=== PATIENT | male | born 1945 | race Caucasian/White ===

== ENCOUNTER → 2017-03-05 | Outpatient (CLI) | payer OTHER, MEDICARE ==
[~2017-03-05] MED LIST: ASCO100061 PO; ASPI325T39 PO; CIPR-255 PO; DOXY100C76 PO; HYDR5SYP11 PO; PRED20TA2 PO
== END | disposition home or self-care (01) ==
LOC: C.LAB 14:07
PROVIDERS: ATTEND Urology
DX: N40.1 Benign prostatic hyperplasia with lower urinary tract symptoms (principal)

== ENCOUNTER 2017-03-17 09:21 | Emergency (ER) | payer OTHER, MEDICARE ==
[~2017-03-17] VITALS: Ht 182.9 cm; Wt 104.2 kg
[~2017-03-17 09:21] MED LIST changes: -ASCO100061 PO; -DOXY100C76 PO; -HYDR5SYP11 PO; -PRED20TA2 PO
[2017-03-17 09:25] VITALS: BP 169/94; TEMP 37.2; Ht 182.9 cm; Wt 104.2 kg
[2017-03-17] MEDS ORDERED: ALBUT/IPRATROP 3MG/0.5MG NEB 3 ML VIAL INH STA (09:37)
[2017-03-17] MEDS ORDERED: HYDROCODONE/HOMATROPINE SYRUP 5MG/1.5MG 5ML UDP PO STA (09:37)
[2017-03-17] MEDS ORDERED: ALBUTEROL HFA 8 GM INHALER INH STA (09:37)
--- NOTE | 2017-03-17 09:40 | EMERGENCY ROOM VISIT NOTE ---
History Report prepared by Rodrickibmarichuy: Lamar Cast Under the Supervision of: Dr. Alex Lindsay M.D. First contact with patient: 09:27 Chief Complaint: CONGESTION Stated Complaint: SEVERE BRONCHIAL AND NASAL CONGESTION History of Present Illness The patient is a 71 year old male who presents to the Emergency Room with complaints of constant congestion beginning 2 days ago. The patient states that he has had a productive cough and has been having difficulty sleeping due to his cough. He reports that he has a history of 9 broken ribs and a punctured lung after he fell off of a ladder a few years ago. He notes that he has some chest pain with coughing and it is sore when he takes a deep breath. He complains of some rattling in his chest. The patient denies any sore throat, trouble swallowing, headache, and secretions. He states that he called his PCP today and was told to come in to the ED to be seen. He reports that he does not use any inhaler at home and has not taken anything for his pain. Source of History: patient Onset: 2 days ago Position: other (global) Quality: other (congestion) Timing: constant Modifying Factors (Worsening): breathing Associated Symptoms: + cough, + chest pain, No headache, No sorethroat Note: The patient denies any trouble swallowing and secretions. Review of Systems See HPI for pertinent positives & negatives. A total of 10 systems reviewed and were otherwise negative. Past Medical & Surgical Medical Problems: (1) Hives (2) HTN (hypertension) Family History Hypertension Social History Smoking Status: Never Smoker Alcohol Use: occasionally Marital Status: Housing Status: lives with family Occupation Status: employed Current/Historical Medications Scheduled Ascorbic Acid (Ascorbic Acid), 1 TAB PO DAILY Aspirin (Aspirin Ec), 325 MG PO Q2D Doxycycline Monohydrate (Monodox), 100 MG PO BID Scheduled PRN Hydrocodone W/ Homatropine (Hycodan 5/1.5MG 5 Ml), 5 ML PO HS PRN for Cough Allergies Coded Allergies: No Known Allergies (Unverified , 03/17/17) Physical Exam Vital Signs Date Time Temp Pulse Resp B/P (MAP) Pulse Ox O2 Delivery O2 Flow Rate FiO2 03/17/17 10:40 78 18 95 03/17/17 09:31 97 Room Air 03/17/17 09:25 37.2 86 18 169/94 96 Room Air Physical Exam GENERAL: Patient is a healthy-appearing well-nourished male HEAD: Normocephalic atraumatic EYES: Ocular movements intact pupils equal and react to light OROPHARYNX mucous membranes are moist no exudates present no erythema or edema present NECK: Supple no nuchal rigidity CHEST: Good equal expansion LUNGS: Bilateral wheezing present at the bases. CARDIAC: Normal S1 and S2 ABDOMEN: Soft nontender no guarding BACK: No CVA tenderness EXTREMITIES: No pain upon palpation normal muscle strength in all groups no clubbing cyanosis or edema NEURO: Patient is following commands and answering questions appropriately. Alert and oriented x3 Cranial Nerves 2-12 grossly intact Medical Decision & Procedures ER Provider Diagnostic Interpretation: X-ray results as stated below per interpretation by me and the radiologist: CHEST ONE VIEW PORTABLE FINDINGS: The heart is mildly enlarged. There is aortic tortuosity/ectasia. There is no failure. There is no focal pulmonary consolidation. There are no pleural effusions. There are old left-sided rib fractures.[ IMPRESSION: No active disease in the chest. Electronically signed by: Kunal Andrew M.D. 03/17/2017 9:57 AM Dictated Date/Time: 03/17/2017 9:57 AM Medications Administered Medications (Trade) Dose Ordered Sig/Corrine Route Start Time Stop Time Status Last Admin Dose Admin Hydrocodone Bit/ Homatropine Methylb (Hycodan Syrup) 5 ml NOW STAT PO 03/17/17 09:37 03/17/17 09:39 DC 03/17/17 09:56 5 ML Albuterol (Ventolin Hfa Inhaler) 2 puffs NOW STAT INH 03/17/17 09:37 03/17/17 09:39 DC 03/17/17 09:57 2 PUFFS Albuterol/ Ipratropium (Duoneb) 3 ml NOW STAT INH 03/17/17 09:37 03/17/17 09:40 DC 03/17/17 09:56 3 ML Doxycycline Hyclate (Vibramycin Cap) 100 mg ONE ONCE PO 03/17/17 10:15 03/17/17 10:16 DC 03/17/17 10:39 100 MG ED Course 0927: Past medical records reviewed. The patient was evaluated in room A11. A complete history and physical examination was performed. 0937: Duoneb 3ml INH, Albuterol 2 puffs INH, Hycodan Syrup 5ml PO. 1013: Prednisone 60mg PO. 1015: Vibramycin Cap 100mg PO. 1018: I updated and reevaluated the patient. The patient refused the prednisone after my strong recommendation. 1023: Upon reexamination the patient is doing well. I discussed results and treatment plan with the patient. He verbalizes agreement and understanding. The patient is ready for discharge. Medical Decision Differential diagnosis: Etiologies such as infections, reactive airway disease, pneumonia, pneumothorax , COPD, CHF, cardiac ischemia, pulmonary embolism, musculoskeletal, gastrointestinal, as well as others were entertained. This is a 71-year-old male who presents emergency department complaining of bronchitis-like symptoms as well as cough. The patient is requesting an antibiotic. I recommended we obtain a chest x-ray as well as breathing treatments and an inhaler. The patient does not have any evidence of pneumonia congestion on his chest x-ray. I also recommended prednisone which the patient is adamantly refusing. He also did receive Hycodan. Repeat examination revealed improvement patient's symptoms. I recommended that the patient continue prednisone as well as albuterol inhaler twice every 6 hours as needed. The patient does not want to take prednisone so continue him on doxycycline Medication Reconcilliation Current Medication List: was personally reviewed by me Blood Pressure Screening Patient's blood pressure: Elevated blood pressure Blood pressure disposition: Referred to PCP Impression Primary Impression: Bronchitis Scribe Attestation The scribe's documentation has been prepared under my direction and personally reviewed by me in its entirety. I confirm that the note above accurately reflects all work, treatment, procedures, and medical decision making performed by me. Departure Information Dispostion Home / Self-Care Prescriptions Hydrocodone W/ Homatropine (HYCODAN 5/1.5MG 5 ML) 1 Syp Syp 5 ML PO HS Y for Cough, #120 ML Prov: Alex Lindsay MD 03/17/17 Doxycycline Monohydrate (Monodox) 100 Mg Cap 100 MG PO BID for 10 Days, #20 CAP Prov: Alex Lindsay MD 03/17/17 Referrals No Doctor, Assigned (PCP) Forms HOME CARE DOCUMENTATION FORM, IMPORTANT VISIT INFORMATION Patient Instructions Bronchitis Acute Dc, ED Upper Resp Infec Abx Tx, Hypertension Dc, My [facility] Additional Instructions Use inhaler twice every 6 hours You were found to have an elevated blood pressure today (>120 sytolic or >90 diastolic). Per medicare guidelines, you need to follow up with this blood pressure screening with your Primary Care Physician (PCP). For a new PCP call [phone]. You received narcotic or benzodiazepene medication while in the emergency room today. Do not drive, operate heavy machinery, or drink alcohol under the influence of this medication. Take 1000 mg Tylenol every 6 hours Take Hycodan for breakthrough pain You have been examined and treated today on an emergency basis only. This is not a substitute for, or an effort to provide, complete comprehensive medical care. It is impossible to recognize and treat all injuries or illnesses in a single emergency department visit. It is therefore important that you follow up closely with Dr Muhammad. Call as soon as possible for an appointment. Thank you for your time and consideration. I look forward to speaking with you again soon. Please don't hesitate to call us if you have any questions.
[2017-03-17] MEDS ORDERED: ASCO100061 PO (09:52)
--- NOTE | 2017-03-17 09:59 | DIAGNOSTIC IMAGING REPORT ---
CHEST ONE VIEW PORTABLE CLINICAL HISTORY: Bronchitis COMPARISON STUDY: 01/27/2015 FINDINGS: The heart is mildly enlarged. There is aortic tortuosity/ectasia. There is no failure. There is no focal pulmonary consolidation. There are no pleural effusions. There are old left-sided rib fractures.[ IMPRESSION: No active disease in the chest. Electronically signed by: Kunal Andrew M.D. 03/17/2017 9:57 AM Dictated Date/Time: 03/17/2017 9:57 AM
[2017-03-17] MEDS ORDERED: HYDR5SYP11 PO (10:15)
[2017-03-17] MEDS ORDERED: PRED20TA2 PO (10:15)
[2017-03-17] MEDS ORDERED: DOXY100C76 PO (10:15)
[2017-03-17] MEDS ORDERED: DOXYCYCLINE HYCLATE 100 MG CAP PO ONE (10:15)
[2017-03-17 10:40] VITALS: PULSE 78; O2SAT 95
== END 2017-03-17 10:41 | disposition home or self-care (01) ==
LOC: C.EDB 09:23 → C.EDA 10:41
DX: J40 Bronchitis, not specified as acute or chronic (principal); I10 Essential (primary) hypertension; Z79.82 Long term (current) use of aspirin

== ENCOUNTER 2017-03-27 10:48 | Emergency (ER) | payer OTHER, MEDICARE ==
[~2017-03-27] VITALS: Ht 182.9 cm; Wt 99.5 kg
[~2017-03-27 10:48] MED LIST changes: +ASCO100061 PO; -CIPR-255 PO; +DOXY100C76 PO; +HYDR5SYP11 PO
[2017-03-27 10:52] VITALS: TEMP 36.8; Ht 182.9 cm; Wt 99.5 kg
[2017-03-27] MEDS ORDERED: LACTULOSE SYRUP 20 GM/30 ML UDC PO STA (11:18)
[2017-03-27] MEDS ORDERED: MILK AND MOLASSES ENEMA PR STA (11:18)
--- NOTE | 2017-03-27 11:20 | EMERGENCY ROOM VISIT NOTE ---
History Report prepared by Kori: Chu Paul Under the Supervision of: Dr. Claudio Agrawal M.D. First contact with patient: 10:56 Chief Complaint: CONSTIPATION Stated Complaint: CONSTIPATION,UNABLE TO VOID Nursing Triage Summary: pt to the ED with constipation and unable to get urine out with cath History of Present Illness The patient is a 71 year old male who presents to the Emergency Room with complaints of persistent constipation that started yesterday. He says that he was here a couple weeks ago for acute bronchitis, and was prescribed doxycycline. The patient states that he took his last pill this morning, but as a result of the doxycycline, he has started to become constipated. He says that he last had a bowel movement yesterday morning, but starting this morning he had extreme discomfort because he felt like he had to have a bowel movement but was unable to. The patient notes that his gave him a fleets enema, without success. He adds that he has not urinated since the middle of last night. He catheterized himself this morning, but nothing came out. However, he notes that the end of it was bloody. The patient says that he last passed gas yesterday morning. He denies any nausea, vomiting, abdominal pain, burning with urination , hematuria, hematochezia, or recent weight loss. The patient says that he does not take any daily medications. He has been here in the past for urinary retention. His last colonoscopy was a year ago, and it was normal. The patient notes that he has a slightly enlarged prostate. The patient has no family history of colon cancer. He has not had any known recent sick contacts. He does not use tobacco products. Source of History: patient Onset: Yesterday Position: other (global - constipation) Symptom Intensity: last bm was yesterday morning Associated Symptoms: + urinary symptoms (inability to urinate today), No nausea, No vomiting, No abdominal pain, No hematochezia Note: Associated symptoms: Discomfort due to constipation. Denies burning with urination, hematuria. Review of Systems See HPI for pertinent positives and negatives. A total of ten systems were reviewed and were otherwise negative. Past Medical & Surgical Medical Problems: (1) Hives (2) HTN (hypertension) Family History Hypertension Social History Smoking Status: Never Smoker Alcohol Use: occasionally Marital Status: Housing Status: lives with family Occupation Status: employed Current/Historical Medications Scheduled Ascorbic Acid (Ascorbic Acid), 1 TAB PO QAM Aspirin (Aspirin Ec), 325 MG PO Q2D Doxycycline Monohydrate (Monodox), 100 MG PO BID Scheduled PRN Hydrocodone W/ Homatropine (Hycodan 5/1.5MG 5 Ml), 5 ML PO HS PRN for Cough Allergies Coded Allergies: No Known Allergies (Unverified , 03/27/17) Physical Exam Vital Signs Date Time Temp Pulse Resp B/P (MAP) Pulse Ox O2 Delivery O2 Flow Rate FiO2 03/27/17 14:26 75 18 176/97 95 Room Air 03/27/17 12:31 70 18 146/85 95 Room Air 03/27/17 10:52 36.8 91 18 158/94 97 Physical Exam GENERAL: Awake, alert, well-appearing, in no distress HENT: Normocephalic, atraumatic. Oropharynx unremarkable. EYES: Normal conjunctiva. Sclera non-icteric. NECK: Supple. No nuchal rigidity. FROM. No JVD. RESPIRATORY: Clear to auscultation. CARDIAC: Regular rate, normal rhythm. Extremities warm and well perfused. Pulses equal. ABDOMEN: Soft. Mild general tenderness to palpation. Normal bowel sounds in all quadrants. No guarding, no rebound. RECTAL: Deferred. MUSCULOSKELETAL: Chest examination reveals no tenderness. The back is symmetrical on inspection without obvious abnormality. There is no CVA tenderness to palpation. No joint edema. LOWER EXTREMITIES: Calves are equal size bilaterally and non-tender. No edema. No discoloration. NEURO: No saddle anesthesia, no sensory deficits, no numbness, tingling, or weakness in lower extremities. SP, DP, tib nerves intact. SKIN: No rash or jaundice noted. Medical Decision & Procedures ER Provider Diagnostic Interpretation: X-ray: Per my interpretation, radiologist review. ABDOMEN 2 VIEWS CLINICAL HISTORY: CONSTIPATION. FINDINGS: Supine and erect abdominal radiographs are obtained. No prior studies are available for comparison at the time of dictation. There is a nonobstructed abdominal bowel gas pattern. Moderate colonic fecal retention is observed. Rectosigmoid fecal impaction is noted. No evidence of intracranial free air is seen. There are no abnormal abdominal calcifications. The skeletal structures are osteopenic. Multilevel lumbosacral spondylosis is observed. IMPRESSION: Nonobstructed abdominal bowel gas pattern noting moderate colonic fecal retention and rectosigmoid fecal impaction. Electronically signed by: Ever Miguel M.D. 03/27/2017 12:49 PM Dictated Date/Time: 03/27/2017 12:47 PM Laboratory Results 03/27/17 11:49 Red Blood Count 4.92, Mean Corpuscular Volume 94.5, Mean Corpuscular Hemoglobin 31.7, Mean Corpuscular Hemoglobin Concent 33.5, Mean Platelet Volume 9.9, Neutrophils (%) (Auto) 75.2, Lymphocytes (%) (Auto) 12.3, Monocytes (%) (Auto) 11.1, Eosinophils (%) (Auto) 1.0, Basophils (%) (Auto) 0.1, Neutrophils # (Auto ) 5.83, Lymphocytes # (Auto) 0.95, Monocytes # (Auto) 0.86, Eosinophils # (Auto ) 0.08, Basophils # (Auto) 0.01 03/27/17 11:49 Test 03/27/17 11:49 03/27/17 12:00 White Blood Count 7.75 K/uL (4.8-10.8) Red Blood Count 4.92 M/uL (4.7-6.1) Hemoglobin 15.6 g/dL (14.0-18.0) Hematocrit 46.5 % (42-52) Mean Corpuscular Volume 94.5 fL (80-100) Mean Corpuscular Hemoglobin 31.7 pg (25-34) Mean Corpuscular Hemoglobin Concent 33.5 g/dl (32-36) Platelet Count 298 K/uL (130-400) Mean Platelet Volume 9.9 fL (7.4-10.4) Neutrophils (%) (Auto) 75.2 % Lymphocytes (%) (Auto) 12.3 % Monocytes (%) (Auto) 11.1 % Eosinophils (%) (Auto) 1.0 % Basophils (%) (Auto) 0.1 % Neutrophils # (Auto) 5.83 K/uL (1.4-6.5) Lymphocytes # (Auto) 0.95 K/uL (1.2-3.4) Monocytes # (Auto) 0.86 K/uL (0.11-0.59) Eosinophils # (Auto) 0.08 K/uL (0-0.5) Basophils # (Auto) 0.01 K/uL (0-0.2) RDW Standard Deviation 47.5 fL (36.4-46.3) RDW Coefficient of Variation 13.7 % (11.5-14.5) Immature Granulocyte % (Auto) 0.3 % Immature Granulocyte # (Auto) 0.02 K/uL (0.00-0.02) Anion Gap 7.0 mmol/L (3-11) Est Creatinine Clear Calc Drug Dose 95.7 ml/min Estimated GFR () 101.1 Estimated GFR (Non- 87.2 BUN/Creatinine Ratio 23.8 (10-20) Calcium Level 9.1 mg/dl (8.5-10.1) Urine Color YELLOW Urine Appearance CLEAR (CLEAR) Urine pH 6.5 (4.5-7.5) Urine Specific Avery 1.022 (1.000-1.030) Urine Protein NEG (NEG) Urine Glucose (UA) NEG (NEG) Urine Ketones NEG (NEG) Urine Occult Blood 2+ (NEG) Urine Nitrite NEG (NEG) Urine Bilirubin NEG (NEG) Urine Urobilinogen NEG (NEG) Urine Leukocyte Esterase NEG (NEG) Urine WBC (Auto) 1-5 /hpf (0-5) Urine RBC (Auto) >30 /hpf (0-4) Urine Hyaline Casts (Auto) 1-5 /lpf (0-5) Urine Epithelial Cells (Auto) 5-10 /lpf (0-5) Urine Bacteria (Auto) NEG (NEG) Laboratory results reviewed by me Medications Administered Medications (Trade) Dose Ordered Sig/Corrine Route Start Time Stop Time Status Last Admin Dose Admin Miscellaneous Medication (Milk And Molasses Enema) 1 ea NOW STAT AK 03/27/17 11:18 03/27/17 11:23 DC 03/27/17 12:54 1 EA Lactulose (Chronulac Syrup) 30 gm NOW STAT PO 03/27/17 11:18 03/27/17 11:23 DC 03/27/17 11:41 30 GM Ondansetron HCl (Zofran Inj) 4 mg NOW STAT IV 03/27/17 13:11 03/27/17 13:12 DC 03/27/17 13:21 4 MG ED Course 1104: The patient was evaluated in room C8. A complete history and physical exam was performed. 1118: Ordered Chronulac Syrup 30 gm PO, Milk and Molasses Enema 1 ea AK. 1311: Ordered Zofran Inj 4 mg IV. 1354: I reevaluated the patient and he had a bowel movement and feels good. We are taking out the Treviño. I advised the patient on fiber and Senna Colace. If the patient can urinate, he will be discharged. 1440: The patient was able to urinate. The patient was agreeable with the treatment plan. The patient is ready for discharge. Medical Decision Differential diagnosis includes but is not limited to: obstruction, mechanical obstruction, ileus, volvulus, cauda equina, UTI, obstructive uropathy. 71-year-old white male with recent ER visit for bronchitis presents the chief complaint of urinary retention and constipation. Patient will appearing with fairly normal vital signs. Abdomen is nondistended with only mild global pain and bowel sounds present in all quadrants. Patient has no history of cancer, drug use, fever, weight loss, saddle anesthesia, numbness, tingling, or weakness. Patient was subsequently given a milk of molasses enema and a Treviño was placed. Approximately 600 mL of dark yellow fluid intake into his Treviño bag. Patient had a UA shows no showed concerns for infection. Patient's renal function was normal and has no concern for obstructive uropathy or nephropathy. Patient's plain film did show a nonobstructive bowel gas pattern with fecal impaction. Patient had a subsequent bowel movement Treviño was removed and patient was able to void without issue. Patient was told to increase the fiber in his diet as well as to take [id number] medications such as senna and Colace in addition to Metamucil to help him have better bowel movements. Patient was told to follow-up with his primary care physician as well as his urologist as needed. Patient was informed of all findings. Patient agreeable with plan of care. Patient was discharged home. Medication Reconcilliation Current Medication List: was personally reviewed by me No daily medications. Blood Pressure Screening Patient's blood pressure: Elevated blood pressure Blood pressure disposition: Referred to PCP Impression Primary Impression: Acute urinary retention Additional Impression: Constipation Scribe Attestation The scribe's documentation has been prepared under my direction and personally reviewed by me in its entirety. I confirm that the note above accurately reflects all work, treatment, procedures, and medical decision making performed by me. Departure Information Dispostion Home / Self-Care Referrals Hayden Muhammad M.D. (PCP) Patient Instructions Constipation, Docusate Sodium Senna tablets or capsules, ED Diet High Fiber, Mineral Oil rectal enema, My [facility] Additional Instructions Please follow-up with your PCP and take all medications as prescribed. If you have worsening symptoms not amenable to at-home care please either call your primary care physician and/or return to the ED for further management and care. Problem Qualifiers
[2017-03-27 12:05] LABS: BASO % 0.1 %; BASO ABS # 0.01 K/uL (0-0.2); COMPLETE YES; HEMATOCRIT 46.5 % (42-52); IG% 0.3 %; LYMPH % 12.3 %; LYMPH ABS # 0.95 K/uL (1.2-3.4); MEAN CELL VOLUME 94.5 fL (80-100); MEAN CORPUSCULAR HEMOGLOBIN 31.7 pg (25-34); MEAN CORPUSCULAR HGB CONC 33.5 g/dl (32-36); MEAN PLATELET VOLUME 9.9 fL (7.4-10.4); MONO % 11.1 %; NEUT % 75.2 %; PLATELET COUNT 298 K/uL (130-400); RED BLOOD COUNT 4.92 M/uL (4.7-6.1); WHITE BLOOD COUNT 7.75 K/uL (4.8-10.8)
[2017-03-27 12:21] LABS: URINE APPEARANCE CLEAR (CLEAR); URINE BILIRUBIN NEG (NEG); URINE COLOR YELLOW; URINE NITRITE NEG (NEG); URINE PH 6.5 (4.5-7.5); URINE SPECIFIC GRAVITY 1.022 (1.000-1.030); UROBILINOGEN NEG (NEG)
[2017-03-27 12:23] LABS: BUN/CREATININE RATIO 23.8 (10-20); CALCIUM 9.1 mg/dl (8.5-10.1); CREATININE 0.89 mg/dl (0.60-1.40); POTASSIUM 4.1 mmol/L (3.5-5.1)
[2017-03-27 12:30] LABS: MANUAL MICROSCOPIC REQUIRED? NO; REVIEW REQ? NO
--- NOTE | 2017-03-27 12:50 | DIAGNOSTIC IMAGING REPORT ---
ABDOMEN 2 VIEWS CLINICAL HISTORY: CONSTIPATION. FINDINGS: Supine and erect abdominal radiographs are obtained. No prior studies are available for comparison at the time of dictation. There is a nonobstructed abdominal bowel gas pattern. Moderate colonic fecal retention is observed. Rectosigmoid fecal impaction is noted. No evidence of intracranial free air is seen. There are no abnormal abdominal calcifications. The skeletal structures are osteopenic. Multilevel lumbosacral spondylosis is observed. IMPRESSION: Nonobstructed abdominal bowel gas pattern noting moderate colonic fecal retention and rectosigmoid fecal impaction. Electronically signed by: Ever Miguel M.D. 03/27/2017 12:49 PM Dictated Date/Time: 03/27/2017 12:47 PM
[2017-03-27] MEDS ORDERED: ONDANSETRON INJ 2 MG/ML 2 ML VIAL IV STA (13:11)
[2017-03-27 14:26] VITALS: BP 176/97; PULSE 75; O2SAT 95
== END 2017-03-27 15:09 | disposition home or self-care (01) ==
LOC: C.EDB 10:49 → C.EDC 15:09
DX: R33.9 Retention of urine, unspecified (principal); K59.00 Constipation, unspecified; I10 Essential (primary) hypertension

== ENCOUNTER 2022-03-20 07:53 | Observation (INO) ==
--- NOTE | 2022-03-01 12:45 | PAT Medication Instructions ---
Medication Instructions Date of Service March 01, 2022 Home Medications aspirin 325 mg tablet 650 mg PO UD acetaminophen 650 mg tablet,extended release 650 mg PO UD alfuzosin 10 mg tablet,extended release 24 hr 10 mg PO QPM atorvastatin 20 mg tablet 20 mg PO HS calcium carb,cit 300 mg-magnesium cit,ox 150 mg-vit D3 400 unit tablet (Roberto-Mag Complex) 1 tab PO QAM cholecalciferol (vitamin D3) 1,250 mcg (50,000 unit) tablet 1,250 mcg PO Q7D dutasteride 0.5 mg capsule (Avodart) 0.5 mg PO QAM turmeric 482 mg PO QAM Continue as directed cholecalciferol (vitamin D3) 1,250 mcg (50,000 unit) tablet 1,250 mcg PO Q7D (just do not take on morning of surgery) ASK your surgeon for instructions aspirin 325 mg tablet 650 mg PO UD STOP taking 2 weeks before surgery turmeric 482 mg PO QAM DO NOT take the morning of surgery calcium carb,cit 300 mg-magnesium cit,ox 150 mg-vit D3 400 unit tablet (Roberto-Mag Complex) 1 tab PO QAM Take morning of surgery With a small sip of water, OTHERWISE NOTHING TO EAT OR DRINK AFTER MIDNIGHT: acetaminophen 650 mg tablet,extended release 650 mg PO UD (if needed) dutasteride 0.5 mg capsule (Avodart) 0.5 mg PO QAM Take evening before surgery acetaminophen 650 mg tablet,extended release 650 mg PO UD (if needed) alfuzosin 10 mg tablet,extended release 24 hr 10 mg PO QPM atorvastatin 20 mg tablet 20 mg PO HS Other Notes If you have any questions please call us at [phone] or [phone] or [phone] or [phone]
--- NOTE | 2022-03-07 15:28 | Anesthesiology Consultation ---
Date of Service March 07, 2022 Assessment & Plan (1) Encounter for pre-operative examination: - pt unable to void in clinic, will bring urine sample to [facility] later this week. - COVID screening: Per strickler attendant on 02/23/2022: Travel screen negative, no known COVID-19 positive contacts or current COVID-19 related symptoms in past 2 weeks. Pt vaccinated. Surgeon arranging preop COVID testing, scheduled 03/16/2022. Awaiting results. Chart Review Chart Review: Pending: Refer to Additional Notes / Consult section and Patient seen in Pre Admission Testing Teaching & Discussion Pre-Anesthesia Teaching/Discussion Notes: Instructed NPO after midnight before surgery, except medications with 15 cc of water. Medication instructions provided according to the PAT guidelines. History Surgery Operation Date: 03/20/22 10:15 Proposed Procedures p Left Total Knee Arthroplasty - Richard Tejeda MD Height/Weight Height: 6 ft 1 in Weight: 109.1 kg Allergies Allergy/AdvReac Type Severity Reaction Status Date / Time eggplant Allergy Severe Anaphylaxis Verified 03/07/22 15:56 Medications Home Medications Medication Instructions Recorded Confirmed Last Taken aspirin 325 mg tablet 650 mg PO UD 10/14/18 02/23/22 10/26/18 acetaminophen 650 mg 650 mg PO UD 02/23/22 02/23/22 Unknown tablet,extended release alfuzosin 10 mg tablet,extended 10 mg PO QPM 02/23/22 02/23/22 Unknown release 24 hr atorvastatin 20 mg tablet 20 mg PO HS 02/23/22 02/23/22 Unknown calcium carb,cit 300 mg-magnesium 1 tab PO QAM 02/23/22 02/23/22 Unknown cit,ox 150 mg-vit D3 400 unit tablet (Roberto-Mag Complex) cholecalciferol (vitamin D3) 1,250 1,250 mcg PO Q7D 02/23/22 02/23/22 Unknown mcg (50,000 unit) tablet dutasteride 0.5 mg capsule 0.5 mg PO QAM 02/23/22 02/23/22 Unknown (Avodart) turmeric 482 mg PO QAM 02/23/22 02/23/22 Unknown Past Medical History Medical History (Updated 03/07/22 @ 16:12 by Yumi Cartagena PA-C) BPH (benign prostatic hyperplasia) Constipation post-op constipation Hx of trauma r/t fall 2016 - fall from ladder - sustained multiple rib fractures, fx sacrum, spine, fx clavicle,and punctured lung. Seen here and transferred to [facility]. 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 Exercise / Class Metabolic Activity II 4-5 Yardwork/Stairs/Walk up hill (ambulates with cane, denies CP or SOB with 1 FOS) Past Surgical History Surgical History (Updated 03/07/22 @ 15:46 by Yumi Cartagena PA-C) Family history of reaction to anesthesia brother had cardiac arrest on table, brother reportedly had significant cardiac history; brother recently passed d/t cardiac arrest d/t significant MVA trauma; denies other family members with reactions/adverse events under anesthesia H/O colonoscopy Hx of inguinal hernia repair Lt. 11/03/18: Grade 2 view, MAC 4, ETT 7.5. Hx of umbilical hernia repair Past Anesthesia History Other (pt-postop constipation; see above regarding brother cardiac arrest under general anesthesia) History of PONV No Hx of PONV and No Hx of Motion Sickness Social History Smoking Status: Never smoker Do You Dip or Chew Tobacco: No Hx Alcohol Use: Yes Alcohol type: beer, wine and hard liquor alcohol intake frequency: 0-2 drinks per day Hx Substance Use: No substance use type: does not use Review of Systems Snoring, denies witnessed apneas. Patient denies chest pain, shortness of breath, dyspnea on exertion, reflux, fever, chills, cough, wheezing, or palpitations. Physical Exam Vital Signs Vitals BP 157/74 (he states usual BP range 140/70s, states is stressed about post-op constipation and was advised to further discuss options with surgeon's office) P 65 TEMP 99.0 SP02 97% on RA RESP 17 Physical Full cervical extension range of motion without pain TMD 3.5 finger breaths Mallampati Score 3 Dentition: intact, several caps/crowns-none in front; denies chipped or loose teeth, implants or bridges Lungs: normal respiratory effort. Clear throughout to auscultation, no adventitious breath sounds Cardiac: regular rate and rhythm, no murmurs noted Carotid arteries: negative bruit bilat Lab Results Anesthesia Preop Results Results Anesthesia Widget: WBC 6.87 K/ul (4.8-10.8) 03/07/22 Hgb 14.0 g/dl (14.0-18.0) 03/07/22 Hct 42.7 % (40.1-51.0) 03/07/22 Plt 245 K/uL (130-400) 03/07/22 Na 140 mmol/L (136-145) 03/07/22 K 3.6 mmol/L (3.5-5.1) 03/07/22 Cl 106 mmol/L (98-107) 03/07/22 CO2 27 mmol/L (21-32) 03/07/22 BUN 25 mg/dl (6-23) H 03/07/22 Creat 0.73 mg/dl (0.6-1.4) 03/07/22 Glucose Level 104 mg/dl (70-99(Fasting)) H 03/07/22 PT 10.2 Seconds (9.0-12.0) 03/07/22 PTT 25.8 Seconds (21.0-31.0) 03/07/22 INR 1.0 (0.9-1.1) 03/07/22 HA1c 5.6 % (4.5-5.6) 03/07/22 Blood Type O Positive 03/07/22 Antibody Screen NEGATIVE 03/07/22 Testing Electrocardiogram Date: 03/07/22 Sinus rhythm with 1st degree AV block, rate 62 bpm Chest X-Ray Date: 03/07/22 No pneumothorax. No pleural effusions. The cardiac silhouette remains mildly enlarged. There are old, healed left-sided rib fractures again noted. No focal lung consolidations to suggest pneumonia. No evidence for pulmonary edema. Calcifications again noted at the aortic knob. IMPRESSION: No significant change compared to the prior study. No acute process.
[~2022-03-20 07:53] MED LIST changes: +ACETAMINOPHEN 500 MG TAB PO SCH; -ASCO100061 PO; -ASPI325T39 PO; +BUPIVACAINE 0.5 % 5 MG/1 ML PF 10ML VIAL ONE; +CeleBREX 200 MG CAP PO SCH; -DOXY100C76 PO; +FAMOTIDINE 20 MG TAB PO SCH; +GABAPENTIN 300 MG CAP PO ONE; -HYDR5SYP11 PO; +LR 500ML BOLUS, THEN 15ML/HR IV SCH; +LR 60ML/HR IV SCH; +ROPIVACAINE 0.5% 5 MG/ML 30 ML VIAL ONE; +ROPIVACAINE 0.5% HCL/PF 150 MG, BUPIVACAINE 0.75% MPF 20 ML, EPINEPHrine 0.15 MG, Ketor... INFIL SCH; +TRANEXAMIC ACID 1,000 MG **IV Intra-op IV SCH; +TRANEXAMIC ACID 1,000 MG **IV Pre-op IV SCH; +ceFAZolin 2000MG 2,000 MG/15 ML SYR IV SCH; +cloNIDine HCL 0.1 MG/24 HR TRANSDERM SYS TD SCH; +dexAMETHasone 4 MG TAB PO SCH; +oxyCODONE HCL 10 MG TABCR (OxyCONTIN) PO SCH; +traMADol HCL 50 MG TABLET PO SCH
[2022-03-20] MEDS ORDERED: ORTHO JOINT ANESTHETIC ONE (09:01)
[2022-03-20] MEDS ORDERED: VANCOMYCIN HCL 1000MG/20ML VIAL ONE (09:01)
[2022-03-20] MEDS ORDERED: MIDAZOLAM HCL 1 MG/ML 2ML VIAL ONE (09:25)
[2022-03-20] MEDS ORDERED: fentaNYL citrate 100 MCG/2 ML VIAL ONE (09:25)
[2022-03-20] MEDS ORDERED: ePHEDrine sulfate 50 MG/ML AMP IV PRN (09:26)
[2022-03-20] MEDS ORDERED: ATROPINE SULFATE 0.1 MG/ML 10ML SYR IV PRN (09:26)
[2022-03-20] MEDS ORDERED: fentaNYL citrate 100 MCG/2 ML VIAL IV PRN (09:26)
[2022-03-20] MEDS ORDERED: ONDANSETRON INJ 2 MG/ML 2 ML VIAL IV PRN ×2 (09:26→14:29)
--- NOTE | 2022-03-20 09:50 | History & Physical Bridge Note ---
Date of Service March 20, 2022 History & Physical Bridge Note I have examined the patient, reviewed the History & Physical and in the interval since the performance of the History & Physical I have noted the following changes of clinical significance: no changes noted
--- NOTE | 2022-03-20 10:06 | XRay Report ---
XR knee LT 1 or 2V routine HISTORY: 76 years-old Male upon arrival; AP and Lateral left knee pre-op subacute left knee pain wit h recent fall COMPARISON: Left knee radiographs 01/09/2022, MRI left knee 01/15/2022 TECHNIQUE: 2 views of the left knee FINDINGS: Moderate to large joint effusion. There is mild osteoarthritis. Subacute appearing intact and fractur e of the lateral condyle redemonstrated, likely with progressive articular collapse. Mild circumferen tial soft tissue swelling. No dislocation. The patient is rotated on the lateral view. IMPRESSION: 1. Subacute impacted fracture of the lateral femoral condyle redemonstrated with mildly progressed ar ticular collapse. 2. Soft tissue swelling with moderate to large joint effusion. ACT 112: Negative or not required by law. The above report was generated using voice recognition software. It may contain grammatical, syntax o r spelling errors. Electronically signed by: Andrea Lizarraga M.D. 03/20/2022 10:03 AM
[2022-03-20] MEDS ORDERED: GABAPENTIN 300 MG CAP ONE (10:20)
[2022-03-20] MEDS ORDERED: LIDOCAINE 2% MPF LOCAL 5 ML VIAL INFIL ONE (10:54)
[2022-03-20] MEDS ORDERED: PROPOFOL IV EMULSION 10 MG/ML 20 ML VIAL IV ONE ×2 (10:54→12:54)
[2022-03-20] MEDS ORDERED: GLYCOPYRROLATE 0.2 MG/ML VIAL ONE (10:54)
--- NOTE | 2022-03-20 13:25 | Operative Report ---
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 Specimen #2 was specifically bone from the lateral femoral condyle evaluating for osteonecrosis. Anesthesia Type MAC Spinal Regional Complications none Disposition Accompanied Patient To Recovery: No Disposition: Recovery Room Indications Mr. Schimdt developed pain in his left knee. He had a cortisone shot. He fell. His pain worsened. He was found to have collapse of the lateral femoral condyle consistent with osteonecrosis by MRI and CT scan. X-ray done today shows some collapse of the condyle essentially unchanged compared to films back in December. No clear-cut risk factors for osteonecrosis. He has significant pain and has not been able to ambulate because of it. There is also significant knee swelling. The knee has been aspirated to rule out infection. He has elected to proceed with knee replacement. Description of Procedure Informed consent obtained patient identified he identified the operative site as the left knee. I marked with my initials. A preoperative timeout was performed dose of IV antibiotics was given. He was taken to the operating room positioned supine on the OR table a bump was placed under the left calf and tourniquet on the left thigh the leg was prescribed prepped and draped in usual sterile fashion. DVT prophylaxis intraoperatively with foot pump on the nonoperative leg and postoperatively with early mobility mechanical devices and Lovenox. The exam under anesthesia revealed a large left knee effusion with range of motion approximately 0/10-15/115. There was no gross laxity of the knee. The leg was prescribed prepped and draped in usual sterile fashion. Limb exsanguinated the Esmarch. Tourniquet inflated to 250 mmHg. A midline longitudinal incision was made of about 15 to 20 cm in length. This was followed by medial parapatellar arthrotomy. It was noted that he had a well- formed prepatellar bursa distally over the patellar tendon and this was carefully excised. Upon entering the knee large amount of serous fluid was evacuated. The inside of the knee showed an activated synovium which was red- pink and yellow. Typical in appearance. A thorough synovectomy was performed throughout the knee. The retropatellar fat pad was resected and the soft tissue on the anterior aspect the distal femur was removed. I then went ahead and flexed the knee so that I could identify the area of osteonecrosis. There was a flap/bubble of the lateral femoral articular cartilage with no associated bone. This was debrided. It revealed a defect which was 2-1/2 cm wide and 3 cm long of a shallow cavity of the soft bone. This was contained. Mostly distal weightbearing slightly posterior into the posterior aspect. Medial release was performed. The medial meniscus was partially deficient and was resected. The lateral meniscus and the articular surfaces of the condyles was near normal. That is with the exception of the area of osteonecrosis. Correspondingly there was some grade 3 changes on the lateral tibial plateau. There were minimal osteophytes and these were debrided as encountered. The cruciate ligaments were sacrificed and the knee was flexed with the patella everted. The remainder of the menisci were resected. Maintenance Shop Laborer hole was drilled just in front of and between the tibial spines and an intramedullary alignment elizabeth was inserted. The guide was set to take 10 mm off of the lateral side corresponding to about 6 4 medially. This was pinned into place. Extra medullary alignment elizabeth was utilized. Burleson was good however it was a slight varus cut which was corrected by twisting the guide and repeating it. The stylus was rechecked and then this cut was made. A bar pilot hole was drilled in the distal femur. The notch was wide and somewhat situated more medially. The distal femoral cutting guide was applied and set 6 degrees left knee valgus 14 mm thick cut. This was made. Epicondylar axis marked out. It was a tight but intact 10 on the extension gap. Soft bone was noted on the distal cut surface medially somewhat anteriorly there were 2 spots 1 was 1/2 cm in diameter another 1 cm in diameter of normal-appearing bone but just spongy. I also noted a little bit of bone softness on the proximal medial tibia when I inserted the pointed Hohmann and then also on the proximal anterior tibia. Small spots were perhaps of the Bovie would penetrate into the bone but otherwise there was largely normal bone present. Left the femoral lesion as is. Marked out the epicondylar axis. Applied the distal femoral cutting guide sized to a 5. The tibia was also sized to a 5. The external rotation drill holes were made matching the epicondylar axis. The cutting block was applied and the cuts were made with ligaments protected. This remove some of the soft bone in the front of the femoral condyle medially. It skim cut the defect on the lateral condyle. The flexion gap was a symmetric 10. Posterior capsule release performed. I went ahead and curetted the osteonecrotic lesion removing soft bone back to the sclerotic rim which was then scraped with a curette. I then put 3 drill holes in it. This lesion was 1.5 cm wide 2 cm long front to back and was 4 mm in depth. It was contained. Elected to feel with cement. It was situated towards the lateral side of the condyle and it had intact bone posterior anterior and medial. It was on the distal cut surface of the femur. The box cutting guide was applied and the cut was made the femur was applied and fit well. The tibia was prepared with the keel and punch. The trial components were inserted and there was good range of motion and stability. Full extension trace LCL laxity in mid position and at 90 trace MCL laxity in mid position otherwise stable. Attention turned to the patella grade 2 and 3 chondrosis central portion of the patella over a large area. Because of this I went ahead and resected the patella and replaced it in standard fashion. Patellar thickness was 27. I selected a 41 mm patella which was aligned and the lug holes were drilled. Composite patellar thickness at the conclusion of the procedure was between 27 and 28 mm. The guide was set to preserve 16 mm of bone. Patella tracking was fine for no hands technique. Components removed and the bony surfaces were meticulously irrigated and dried. The canals were plugged and the Ortho joint mix was injected in the back the knee. 2 bags of Simplex P cement were mixed and while in a doughy state of the components were cemented in place femur tibia and patella. The knee was held in full extension with a trial poly until the cemented hardened and the tourniquet was let down after about 108 minutes of inflation. I packed cement into the lateral femoral condyle osteonecrotic defect. After the tourniquet was let down meticulous hemostasis was performed and copious irrigation was done. The back the knee was inspected for cement and any extraneous cement was removed. Trialing was again performed and a 10 mm spacer was found to give the correct laxity profile. The final polyethylene was inserted. The remainder the Ortho joint mix was injected and the extensor mechanism closed with #2 FiberWire interrupted above the equator the patella and running and interrupted #1 Vicryl below the skin was closed in layers with 0 and 2-0 Vicryl cesar on skin Xeroform 4 x 4's ABD full-length Jaswinder wrap soft wrap knee brace. Patient wake from anesthesia difficulty taken to recovery in stable condition the resected bone and soft tissue were sent for specimen. I specifically sent a second specimen was contained of bone from the chamfer cuts etc. on the lateral condyle to look for osteonecrosis. Blood loss 10 cc counts correct no complications. At the conclusion the operation spoke patient's informed of findings postop instructions were given. We will start Lovenox in the morning. He has been nonweightbearing for a while or limited weightbearing because of the knee pain. We will start off with partial weightbearing and physical therapy. Components inserted with a J&J PFC Sigma rotating platform knee size 5 left femur a size 5 mobile-bearing keeled tibial tray a 10 mm thick by size 5 polyethylene insert and a 41 mm 3 peg oval dome patella. Boaz assisted flexion with extensor mechanism closed was 120 to 125 degrees. The knee was fully straight neutrally aligned. I attest to the content of the Intraoperative Record and any orders documented therein. Any exceptions are noted below.
--- NOTE | 2022-03-20 13:28 | Operative Report ---
Post Operative Report Pre & Post Diagnosis Operation Date: 03/20/22 10:15 Pre-Op Diagnosis: Osteonecrosis Left Knee Region, Left Knee Effusion Post-Op Diagnosis: Osteonecrosis Left Knee Region, Left Knee Effusion I identified the patient and participated in the time-out.: Yes Procedure Operation Date: 03/20/22 10:15 Actual Procedures p Left Total Knee Arthroplasty(Left) - Richard Tejeda MD Surgeon Gentry Tejeda MD Cook Apprentice Dona Vazquez physicians assistant manager airside operations, Arik Ndiaye fellow Estimated Blood Loss 10 Findings Consistent with Post-Op Diagnosis Consistent with post op diagnosis. Specimens No specimens Description of Procedure I participated in prepping dressing and assisted Dr. Tejeda during the procedure. Pkease see Dr. Tejeda note. I attest to the content of the Intraoperative Record and any orders documented therein. Any exceptions are noted below.
--- NOTE | 2022-03-20 13:56 | XRay Report ---
XR knee LT 1 or 2V routine CLINICAL HISTORY: Surgical Post Op. Status post total knee replacement COMPARISON STUDY: 03/20/2022 TECHNIQUE: 2 left knee views FINDINGS: The patient is status post total knee replacement. The prosthetic components are in anatomi c alignment with no acute abnormality seen. Air is present within the soft tissues from the procedure . Skin cesar are seen anteriorly. IMPRESSION: 1. Status post total knee replacement with resurfacing of the patella. ACT 112: Negative or not required by law. Electronically signed by: Godwin Torres M.D. 03/20/2022 1:55 PM
[2022-03-20] MEDS ORDERED: bisacodyL 10 MG SUPP PR PRN (14:29)
[2022-03-20] MEDS ORDERED: MAGNESIUM HYDROXIDE SUSP 30 ML UDC PO PRN (14:29)
[2022-03-20] MEDS ORDERED: METOCLOPRAMIDE HCL INJ 5 MG/ML 2 ML VIAL IV PRN (14:29)
[2022-03-20] MEDS ORDERED: HYDROmorphone INJ 0.5 MG/0.5 ML SYR IV PRN (14:29)
[2022-03-20] MEDS ORDERED: diphenhydrAMINE 50 MG/ML VIAL IV PRN (14:29)
[2022-03-20] MEDS ORDERED: HYDROmorphone INJ 1 MG/ML SYRINGE IV PRN (14:29)
[2022-03-20] MEDS ORDERED: NALOXONE HCL 0.4 MG/1 ML VIAL/CARP IV PRN (14:29)
[2022-03-20] MEDS: CHECK CLONIDINE PATCH PLACEMENT SCH ×4 (16:29→23:25)
[2022-03-20] MEDS: SODIUM CHLORIDE 0.9% 1000ML 1,000 ML IV SCH (16:32)
[2022-03-20] MEDS: KETOROLAC TROMETHAMINE 15 MG/ML VIAL IV SCH ×2 (16:33→21:28)
[2022-03-20] MEDS: ACETAMINOPHEN 500 MG TAB PO SCH (17:56)
[2022-03-20] MEDS: traMADol HCL 50 MG TABLET PO PRN (17:56)
[2022-03-20] MEDS ORDERED: ATORVASTATIN 20 MG TAB PO SCH (21:00)
[2022-03-20] MEDS ORDERED: SENNA 8.6 MG TAB PO SCH (21:00)
[2022-03-20] MEDS: ceFAZolin 2000MG 2,000 MG/15 ML SYR IV SCH (21:26)
[2022-03-20] MEDS: CeleBREX 200 MG CAP PO SCH (21:28)
[2022-03-20] MEDS: DOCUSATE SODIUM 100 MG CAP PO SCH (22:09)
[2022-03-20] MEDS: oxyCODONE HCL IR 5 MG TAB (IMMEDIATE RELEASE) PO PRN (22:10)
[2022-03-20 22:38] VITALS: O2SAT 93
[2022-03-21] MEDS: SODIUM CHLORIDE 0.9% 1000ML 1,000 ML IV SCH (01:32)
[2022-03-21] MEDS: ACETAMINOPHEN 500 MG TAB PO SCH ×2 (01:34→10:34)
[2022-03-21] MEDS: KETOROLAC TROMETHAMINE 15 MG/ML VIAL IV SCH ×2 (02:35→08:29)
[2022-03-21] MEDS: ceFAZolin 2000MG 2,000 MG/15 ML SYR IV SCH (02:35)
--- NOTE | 2022-03-21 06:26 | Anesthesiology Progress Note ---
Date of Service March 21, 2022 Anesthesia Post Procedure Vital Signs Vital Signs: Temp Pulse Pulse Pulse Resp BP Pulse Ox 03/21/22 03:03 98.6 F 93 H 18 159/75 H 93 03/20/22 22:38 98.4 F 65 17 152/77 H 93 03/20/22 19:36 98.2 F 74 17 148/78 H 94 03/20/22 17:58 98.2 F 70 16 162/79 H 96 03/20/22 17:05 98.6 F 74 16 155/82 H 92 03/20/22 16:35 98.4 F 57 L 16 161/83 H 94 03/20/22 16:05 97.3 F L 56 L 16 157/78 H 93 03/20/22 15:45 50 L 14 145/75 H 95 03/20/22 15:15 55 L 14 160/79 H 95 03/20/22 15:00 48 L 14 151/76 H 93 03/20/22 14:45 97.3 F L 42 L 14 134/67 93 03/20/22 14:30 48 L 14 163/81 H 93 03/20/22 14:15 46 L 14 143/72 H 93 03/20/22 14:05 48 L 14 146/75 H 94 03/20/22 13:55 97.2 F L 52 L 14 155/75 H 94 03/20/22 13:45 57 L 14 147/74 H 94 03/20/22 13:35 55 L 16 146/71 H 94 03/20/22 13:28 96.8 F L 62 16 140/74 98 03/20/22 08:56 98.2 F 61 18 197/82 H 97 O2 Del Method O2 Flow Rate 03/21/22 03:03 Nasal Cannula 2 03/20/22 22:38 Room Air 03/20/22 19:36 Room Air 03/20/22 17:58 Room Air 03/20/22 17:05 Room Air 03/20/22 16:35 Room Air 03/20/22 16:05 Room Air 03/20/22 15:45 Room Air 03/20/22 15:15 Room Air 03/20/22 15:00 Room Air 03/20/22 14:45 Room Air 03/20/22 14:30 Room Air 03/20/22 14:15 Room Air 03/20/22 14:05 Room Air 03/20/22 13:55 Room Air 03/20/22 13:45 Room Air 03/20/22 13:35 Room Air 03/20/22 13:28 Oxymask 5 03/20/22 08:56 Room Air Pain Intensity Left Knee: Pain Intensity: 1 Transfer of Care Handoff Completed per policy Notes Mental Status: alert / awake / arousable and participated in evaluation Patient Amnestic to Procedure: Yes Nausea / Vomiting: adequately controlled Pain: adequately controlled Airway Patency, RR, SpO2: stable & adequate BP & HR: stable & adequate Hydration State: stable & adequate Neuraxial Anesthesia: was administered and sensory block is resolving Anesthetic Complications: no major complications apparent and Pt Satisfied with anesthetic care
[2022-03-21] MEDS: traMADol HCL 50 MG TABLET PO PRN ×2 (06:33→13:32)
--- NOTE | 2022-03-21 06:43 | Orthopedic Progress Note ---
Date of Service March 21, 2022 Assessment & Plan (1) Status post knee replacement: Plan: Doing well. Surgical findings discussed. Stable postop. Recommend routine postop total knee pathway. We will start blood thinner in the morning. Partial weightbearing less than 50%. Present on Admission?: No Admission and Anticipated Discharge Date Admission Date: March 20, 2022 Subjective Earnest is seen in recovery status post left total knee replacement. Seen proximally 2:30 PM in recovery March 20. We discussed the surgery. X-rays look good. Intact hardware no evidence of complication. Physical Exam Physical Exam: Left foot warm, capillary refill less than 2 seconds, posterior tib pulse 1+. He can wiggle his toes but otherwise the motor block is still working. The toes are tingly and numb. Dressing clean and dry Results & Data ([facility]) Vital Signs (Past 12 Hours) Vital Signs Temp Pulse Resp BP Pulse Ox O2 Del Method O2 Flow Rate 03/21/22 03:03 37.0 C 93 H 18 159/75 H 93 Nasal Cannula 2 03/20/22 22:38 36.9 C 65 17 152/77 H 93 Room Air 03/20/22 19:36 36.8 C 74 17 148/78 H 94 Room Air
[2022-03-21 07:44] VITALS: TEMP 98.4
[2022-03-21] MEDS: CHECK CLONIDINE PATCH PLACEMENT SCH (07:59)
[2022-03-21] MEDS ORDERED: dexAMETHasone 4 MG TAB PO SCH (08:00)
[2022-03-21] MEDS: oxyCODONE HCL IR 5 MG TAB (IMMEDIATE RELEASE) PO PRN (08:02)
[2022-03-21 08:19] VITALS: BP 161/71
[2022-03-21 08:23] LABS: Hematocrit (blood only) 35.6 % (40.1-51.0); Hemoglobin 11.8 g/dl (14.0-18.0); Mean Corpuscular Hemoglobin 31.3 pg (25.0-34.0); Mean Corpuscular Hgb Conc 33.1 g/dL (32.0-36.0); Mean Corpuscular Volume 94.4 fL (80.0-100.0); Mean Platelet Volume 9.9 fL (9.4-12.4); Platelet Count 213 K/uL (130-400); RDW Coefficient of Variation 13.8 % (11.5-14.5); RDW Standard Deviation 47.6 fL (36.4-46.3); Red Blood Count 3.77 M/uL (4.63-6.08); White Blood Count 14.89 K/ul (4.8-10.8)
[2022-03-21] MEDS: CeleBREX 200 MG CAP PO SCH (08:26)
[2022-03-21] MEDS: DOCUSATE SODIUM 100 MG CAP PO SCH (08:27)
[2022-03-21] MEDS ORDERED: ENOXAPARIN INJ 30 MG/0.3 ML SYR SQ SCH (08:30)
[2022-03-21 08:42] LABS: Est GFR (Non-African American) 94.1 ml/min; Potassium 4.2 mmol/L (3.5-5.1)
[2022-03-21] MEDS ORDERED: CALCIUM 600MG + VIT D 400 IU TAB PO SCH (09:00)
[2022-03-21] MEDS ORDERED: MULTIVITAMIN TAB PO SCH (09:00)
[2022-03-21] MEDS ORDERED: ALFUZOSIN HCL 10 MG TAB PO SCH (11:30)
--- NOTE | 2022-03-21 12:12 | Orthopedic Progress Note ---
Date of Service March 21, 2022 Assessment & Plan (1) Status post knee replacement: Plan: POD 1 - s/p left total knee arthroplasty with Dr. Tejeda PT/OT today - PWB - no more then 50%- LLE with knee immobilizer - december D/C immobilizer today Lovenox for DVT prophylaxis x 2-4 weeks after surgery. Ice and elevate left leg as needed for pain/swelling. Continue use of walker to assist with ambulation. Regular diet as ordered recommended over the counter colace, senokot, dulcolax or miralax while at home, rock picker as outpatient and start taking, but no need to stay here until bowel movement. Patient agrees. Home medications continued. Case management for disposition needs - plan to go home with Patient seen and evaluated by Dr. Tejeda today, grecia from orthopedic standpoint for discharge to home. Follow up as scheduled. All questions answered, discharge instructions reviewed. Admission and Anticipated Discharge Date Admission Date: March 20, 2022 Subjective Doing well today, denies pain in left knee that isn't controlled with pain medication. Pain medication helping. Pain 3/10 today. Has been out of bed with walker. Denies chest pain, shortness of breath, nausea, vomiting or urinary retention. He states that he was hoping to stay until he's had a bowel movement as he's had trouble with constipation in the past. Physical Exam Musculoskeletal: Exam of left knee: Dressings clean, dry and intact. Knee immbolizer in place, removed for exam today. Distal pulses 1+, distal sensation normal, full strength of left foot. Distal sensation normal. Results & Data ([facility]) Vital Signs (Past 12 Hours) Vital Signs Temp Pulse Resp BP Pulse Ox O2 Del Method O2 Flow Rate 03/21/22 07:42 36.9 C 70 18 161/71 H 93 Room Air 03/21/22 03:03 37.0 C 93 H 18 159/75 H 93 Nasal Cannula 2 Laboratory Results 03/21/22 03/21/22 Range/Units 07:50 07:50 WBC 14.89 H (4.8-10.8) K/ul RBC 3.77 L (4.63-6.08) M/uL Hgb 11.8 L (14.0-18.0) g/dl Hct 35.6 L (40.1-51.0) % MCV 94.4 (80.0-100.0) fL MCH 31.3 (25.0-34.0) pg MCHC 33.1 (32.0-36.0) g/dL RDW Std Deviation 47.6 H (36.4-46.3) fL RDW Coeff of Apolinar 13.8 (11.5-14.5) % Plt Count 213 (130-400) K/uL MPV 9.9 (9.4-12.4) fL Sodium 137 (136-145) mmol/L Potassium 4.2 (3.5-5.1) mmol/L Chloride 105 (98-107) mmol/L Carbon Dioxide 26 (21-32) mmol/L Anion Gap 6 (3-11) BUN 17 (6-23) mg/dl Creatinine 0.68 (0.6-1.4) mg/dl Est Cr Clr Drug Dosing 123.0 ml/min Est GFR ( Amer) 109.0 ml/min Est GFR (Non-Af Amer) 94.1 ml/min BUN/Creatinine Ratio 25.0 H (10-20) Glucose 127 H (70-99(Fasting)) mg/dl Calcium 9.0 (8.5-10.1) mg/dl Diagnostic Findings XR knee LT 1 or 2V routine CLINICAL HISTORY: Surgical Post Op. Status post total knee replacement COMPARISON STUDY: 03/20/2022 TECHNIQUE: 2 left knee views FINDINGS: The patient is status post total knee replacement. The prosthetic components are in anatomic alignment with no acute abnormality seen. Air is present within the soft tissues from the procedure. Skin cesar are seen anteriorly. IMPRESSION: 1. Status post total knee replacement with resurfacing of the patella.
--- NOTE | 2022-03-21 13:22 | Discharge Summary ---
Date of Service March 21, 2022 Discharge Data Procedures Performed Operation Date: 03/20/22 10:15 Actual Procedures p Left Total Knee Arthroplasty(Left) - Richard Tejeda MD Hospital Course (1) Status post knee replacement: Patient was admitted to [facility] after undergoing an elective left total knee replacement by Dr. Tejeda on 03/20/22. His surgery was performed under IV sedation with peripheral nerve block. He was given 2gm IV Ancef for surgical prophylaxis. The Ancef was continued for 24 hours after surgery. He tolerated the procedure well without any intra-operative complications. In the PACU x-rays of his left knee were obtained and showed a knee replacement with good alignment and normal postoperative findings. Postoperatively, he was allowed out of bed, partial weight bearing, no more than 50%, on his left leg with the assistance of a walker and knee immobilizer. His regular home medications were continued. He was given IV tylenol, IV Toradol, oxycodone, tramadol, and IV dilaudid as needed for pain control after surgery. A regular bowel regimen was provided postoperatively which included Colace, senokot, dulcolax as needed for constipation. Ice and elevation was recommended for pain and swelling after surgery. He was placed in Lovenox 30mg BID starting on POD 1 for DVT prophylaxis, along with mobility, AV impulse boots and CHARLES stockings. He was provided a regular diet during his inpatient stay. His vital signs remained stable, with some elevated blood pressure, which he attributed to increased pain. His vitamin D level was performed on postoperative day 1 and was pending at the time of discharge. This will be followed as an outpatient. He did not develop and postoperative nausea, vomiting, diarrhea, chest pains or shortness of breath. PT and OT were consulted. He did well out of bed and was deemed safe for discharge to his home. Case management was also involved for discharge needs. He planned on going home with Home health which was arranged prior to his admission. Discharge instructions were reviewed and all questions answered.
[2022-03-21 14:03] VITALS: PULSE 50
[2022-03-23] MEDS ORDERED: CHOLECALCIFEROL 5,000 UNITS 125 MCG TAB PO SCH (09:00)
--- NOTE | 2022-04-02 13:19 | Coding Query ---
A supporting diagnosis is required for the test/procedure performed on this patient in order for us to be reimbursed by the patient's insurance. Please provide a supporting diagnosis for the following test/procedure listed below next to the test name along with your signature. *If there is no additional diagnosis for this patient that would support the following test/procedure please document that below next to the test/procedure. Test(s)/Procedure(s) that require a supporting diagnosis: * [id number] TOTAL KNEE ARTHROPLASTY DIAGNOSIS: osteonecrosis and osteoarthritis of knee DATE OF SERVICE: 03/20/22 Provider Signature: Date: Thank you Angel Mondragon [facility] Information Management Once completed, please kindly fax back to [phone] For questions please call [phone] [facility]
== END 2022-03-21 15:00 | disposition home health service (06) ==
LOC: ASU 07:53 → ASUINP 07:53 → 3N 16:11